=== PATIENT | female | born 1990 | race Caucasian/White ===

== ENCOUNTER 2024-03-19 22:21 | Inpatient (IN) | payer MEDICAID ==
[~2024-03-19] VITALS: Ht 160 cm; Wt 65.8 kg
[2024-03-19 22:28] VITALS: BP_SYST 156; PULSE 134; RESP 22; TEMP 99.5; O2SAT 99
[2024-03-19] MEDS: NACL 0.9% 1,000 ML IV ONE (22:51)
[2024-03-19] MEDS: LORazepam 2 MG/ML VIAL IVP ONE (23:05)
[2024-03-19] MEDS ORDERED: ONDANSETRON HCL 4 MG/2 ML VIAL ONE (23:13)
[2024-03-19] MEDS: ONDANSETRON HCL 4 MG/2 ML VIAL IVP ONE (23:18)
[2024-03-19 23:27] LABS: BASOPHILS # (AUTO) 0.4 K/uL (0.0-0.2); EOSINOPHILS # (AUTO) 0.1 K/uL (0.0-0.4); EOSINOPHILS % (AUTO) 0.4 % (0.0-4.0); HEMATOCRIT 42.8 % (36-48); HEMOGLOBIN 14.6 g/dL (12.0-16.0); LYMPHOCYTES # (AUTO) 0.5 K/uL (1.0-5.5); LYMPHOCYTES % (AUTO) 2.3 % (20.5-51.5); MEAN CORPUSCULAR HEMOGLOBIN 33 pg (27-31); MEAN CORPUSCULAR HGB CONC 34 % (32-36); MEAN CORPUSCULAR VOLUME 95 fL (79.0-98.0); MONOCYTES # (AUTO) 0.6 K/uL (0.0-1.0); MONOCYTES % (AUTO) 2.8 % (1.7-9.3); NEUTROPHILS # (AUTO) 18.3 K/uL (1.8-7.7); NEUTROPHILS % (AUTO) 92.5 % (40.0-70.0); PLATELET COUNT (AUTO) 142 K/uL (130-430); RED CELL DISTRIBUTION WIDTH 15.5 % (9.0-15.0); WHITE BLOOD COUNT (AUTO) 19.8 K/uL (4.8-10.8)
[2024-03-19 23:39] LABS: INR 1.4 (0.8-1.2); PROTHROMBIN TIME 14.4 SECS (9.5-12.5)
[2024-03-19 23:46] LABS: ALANINE AMINOTRANSFERASE 103 U/L (12-78); ALBUMIN 4.3 g/dL (3.4-4.8); ANION GAP 26 (5-15); ASPARTATE AMINOTRANSFERASE 250 U/L (10-37); CALCIUM 9.7 mg/dL (8.4-11.0); CARBON DIOXIDE 20 mmol/L (23-29); CHLORIDE 95 mmol/L (98-107); CREATININE 1.43 mg/dL (0.55-1.30); GFR AFRICAN AMERICAN 55 mL/min (>90); GFR NON AFRICAN-AMERICAN 45 mL/min (>90); GLUCOSE 142 mg/dL (74-106); POTASSIUM 3.2 mmol/L (3.5-5.1); SODIUM SERUM 141 mmol/L (136-145); TOTAL BILIRUBIN 3.3 mg/dL (0.0-1.0); TOTAL PROTEIN, SERUM 9.4 g/dL (6.4-8.3); UREA NITROGEN, BLOOD 9 mg/dL (8-21)
[2024-03-19 23:48] LABS: ALCOHOL, BLOOD 4 mg/dL (<10); BILIRUBIN,DIRECT 1.4 mg/dL (0.0-0.3)
[2024-03-20] MEDS ORDERED: LORazepam 1 MG TABLET PO PRN (01:00)
[2024-03-20] MEDS: NACL 0.9% 1,000 ML IV ONE (01:20)
[2024-03-20] MEDS ORDERED: FOLIC ACID 1 MG, THIAMINE HCL 100 MG, MAGNESIUM SULFATE 1 GM, MVI 10 ML in NACL 0.9% 1,... IV ONE (03:00)
[2024-03-20] MEDS: ACETAMINOPHEN 325 MG TABLET PO ONE (03:00)
[2024-03-20 04:24] LABS: BILIRUBIN,URINE 1+ (NEGATIVE); COLOR,URINE YELLOW (YELLOW); GLUCOSE,URINE NEGATIVE (NEGATIVE); KETONES,URINE 2+ (NEGATIVE); LEUKOCYTE ESTERASE ,URINE NEGATIVE (NEGATIVE); PROTEIN URINE 2+ (NEGATIVE)
[2024-03-20 04:34] LABS: BARBITURATE, URINE NEGATIVE (NEG <=200); BENZODIAZEPINE, URINE POSITIVE (NEG <=150); CANNABINOID, URINE NEGATIVE (NEG <=50); COCAINE, URINE POSITIVE (NEG <=150); METHAMPHETAMINES SCREEN,URINE NEGATIVE (NEG <=500); OPIATE, URINE NEGATIVE (NEG <=100); PHENCYCLIDINE SCREEN,URINE NEGATIVE (NEG <=25); UR TRICYCLIC ANTIDEPRESSANTS NEGATIVE (NEG <=300); URINE AMPHETAMINE NEGATIVE (NEG <=500); URINE METHADONE NEGATIVE (NEG <=200); URINE OXYCODONE SCREEN NEGATIVE (NEG <=100)
[2024-03-20 05:01] LABS: BLOOD, URINE TRACE (NEGATIVE); CLARITY/URINE HAZY (CLEAR); NITRITE, URINE NEGATIVE (NEGATIVE)
[2024-03-20 05:02] LABS: BACTERIA,URINE None Seen /HPF (None Seen); WBC,URINE 0-3 /HPF (0-3)
[2024-03-20] MEDS: ONDANSETRON HCL 4 MG/2 ML VIAL IVP PRN (05:30)
[2024-03-20] MEDS: FOLIC ACID 1 MG, MVI 10 ML in NACL 0.9% 1,000 ML IV SCH (06:59)
[2024-03-20] MEDS: THIAMINE HCL 100 MG, MAGNESIUM SULFATE 1 GM in NS 100 ML IV SCH (06:59)
[2024-03-20 09:15] LABS: BASOPHILS # (AUTO) 0.1 K/uL (0.0-0.2); BASOPHILS % (AUTO) 0.4 % (0.0-2.0); EOSINOPHILS % (AUTO) 0.1 % (0.0-4.0); HEMATOCRIT 35.2 % (36-48); HEMOGLOBIN 11.7 g/dL (12.0-16.0); LYMPHOCYTES # (AUTO) 1.3 K/uL (1.0-5.5); LYMPHOCYTES % (AUTO) 8.3 % (20.5-51.5); MEAN CORPUSCULAR HEMOGLOBIN 32 pg (27-31); MEAN CORPUSCULAR HGB CONC 33 % (32-36); MEAN CORPUSCULAR VOLUME 96 fL (79.0-98.0); MONOCYTES # (AUTO) 0.8 K/uL (0.0-1.0); MONOCYTES % (AUTO) 5.3 % (1.7-9.3); NEUTROPHILS # (AUTO) 13.3 K/uL (1.8-7.7); NEUTROPHILS % (AUTO) 85.9 % (40.0-70.0); PLATELET COUNT (AUTO) 93 K/uL (130-430); RED BLOOD CELL COUNT(AUTO) 3.66 MIL/uL (4.2-6.2); RED CELL DISTRIBUTION WIDTH 15.2 % (9.0-15.0); WHITE BLOOD COUNT (AUTO) 15.5 K/uL (4.8-10.8)
[2024-03-20 09:30] LABS: ALBUMIN 3.1 g/dL (3.4-4.8); CREATININE 0.75 mg/dL (0.55-1.30); TOTAL BILIRUBIN 3.6 mg/dL (0.0-1.0); TOTAL PROTEIN, SERUM 6.9 g/dL (6.4-8.3)
[2024-03-20 09:51] VITALS: BP_SYST 137; PULSE 102; RESP 18; TEMP 99; O2SAT 93
[2024-03-20] MEDS ORDERED: METOCLOPRAMIDE HCL 10 MG/2 ML VIAL IVP PRN (10:15)
[2024-03-20 11:13] VITALS: BP_SYST 125; PULSE 76; RESP 16; TEMP 101; O2SAT 93
[2024-03-20] MEDS: POTASSIUM CHLORIDE 20 MEQ TABLET.ER PO ONE (11:15)
[2024-03-20] MEDS: METOCLOPRAMIDE HCL 10 MG/2 ML VIAL IVP ONE (11:15)
[2024-03-20] MEDS: PANTOPRAZOLE SODIUM 40 MG/VIAL (PROTONIX) IVP ONE (11:15)
[2024-03-20] MEDS: POTASSIUM CHLORIDE 40 MEQ, LIDOCAINE JECT 2% PF 100 MG 50 MG in NS 250 ML IV ONE (15:37)
[2024-03-20 16:16] VITALS: BP_SYST 105; PULSE 85; RESP 16; TEMP 99.5; O2SAT 98
[2024-03-20 20:00] VITALS: BP_SYST 121; PULSE 75; RESP 16; TEMP 98; O2SAT 98
[2024-03-20] MEDS: PANTOPRAZOLE SODIUM 40 MG/VIAL (PROTONIX) IVP SCH (21:21)
[2024-03-20] MEDS: POTASSIUM CHLORIDE 20 MEQ TABLET.ER PO SCH (21:22)
[2024-03-21 00:21] VITALS: BP_SYST 132; PULSE 84; RESP 18; TEMP 98.4; O2SAT 99
[2024-03-21 06:31] LABS: BASOPHILS % (AUTO) 0.4 % (0.0-2.0); EOSINOPHILS # (AUTO) 0.1 K/uL (0.0-0.4); EOSINOPHILS % (AUTO) 0.7 % (0.0-4.0); HEMATOCRIT 34.8 % (36-48); HEMOGLOBIN 11.6 g/dL (12.0-16.0); LYMPHOCYTES # (AUTO) 1.5 K/uL (1.0-5.5); LYMPHOCYTES % (AUTO) 14.3 % (20.5-51.5); MEAN CORPUSCULAR HEMOGLOBIN 33 pg (27-31); MEAN CORPUSCULAR HGB CONC 33 % (32-36); MEAN CORPUSCULAR VOLUME 97 fL (79.0-98.0); MONOCYTES # (AUTO) 0.6 K/uL (0.0-1.0); MONOCYTES % (AUTO) 5.5 % (1.7-9.3); NEUTROPHILS % (AUTO) 79.1 % (40.0-70.0); PLATELET COUNT (AUTO) 83 K/uL (130-430); RED BLOOD CELL COUNT(AUTO) 3.58 MIL/uL (4.2-6.2); RED CELL DISTRIBUTION WIDTH 14.7 % (9.0-15.0); WHITE BLOOD COUNT (AUTO) 10.1 K/uL (4.8-10.8)
[2024-03-21 07:08] LABS: CALCIUM 8.6 mg/dL (8.4-11.0); CREATININE 0.74 mg/dL (0.55-1.30); TOTAL BILIRUBIN 3.4 mg/dL (0.0-1.0); TOTAL PROTEIN, SERUM 6.9 g/dL (6.4-8.3)
[2024-03-21 08:00] VITALS: BP_SYST 152; PULSE 89; RESP 16; TEMP 98.9; O2SAT 100
[2024-03-21] MEDS ORDERED: DIATR MEGLU/DIATRIZ SOD 30 ML SOLUTION PO ONE (10:13)
[2024-03-21 11:16] VITALS: BP_SYST 123; PULSE 83; RESP 16; TEMP 97.3; O2SAT 98
[2024-03-21] MEDS: FOLIC ACID 1 MG TABLET PO SCH (14:10)
[2024-03-21] MEDS: THIAMINE HCL 100 MG TABLET PO SCH (14:10)
[2024-03-21 16:00] VITALS: BP_SYST 129; PULSE 87; RESP 24; TEMP 98; O2SAT 97
== END 2024-03-21 22:10 | disposition left against medical advice (07) | DRG 53 ==
LOC: SED 22:21 → STU 03-20 00:50
PROVIDERS: ADMIT Internal Medicine; ATTEND Internal Medicine
PROC: 4A00X4Z Measurement of Central Nervous Electrical Activity, External Approach (ICD-10-PCS; principal; 2024-03-19)
DX: G40.89 Other seizures (principal); N17.0 Acute kidney failure with tubular necrosis; E44.1 Mild protein-calorie malnutrition; D69.6 Thrombocytopenia, unspecified; K70.10 Alcoholic hepatitis without ascites; D64.9 Anemia, unspecified; F10.10 Alcohol abuse, uncomplicated; F14.90 Cocaine use, unspecified, uncomplicated; E87.6 Hypokalemia; Z68.25 Body mass index [BMI] 25.0-25.9, adult
CPT/HCPCS: 36415; 70450-TC; 71045; 80048; 80053; 80076; 80307; 81000; 81001; 81015; 83690; 83880; 84484; 84702; 85025; 85610; 85730; 93005; 95816; 99291; G0378; G0482; J2060; J2405; J2470; J2765; J3411; J3475; J3480; J3490; J7030; J7050; Q9964